=== PATIENT | female | born 1960 | race Caucasian/White ===

== ENCOUNTER 2025-01-26 23:50 | Emergency (ER) | payer OTHER, SELFPAY ==
[2025-01-26 23:50] VITALS: BP 156/83; PULSE 83; RESP 17; TEMP 36.2; O2SAT 100; BMI 22.1
--- NOTE | 2025-01-27 00:10 | EDS_ITS ---
HPI History of Present Illness Chief Complaint: Nausea/Vomiting Narrative Narrative: 54-year-old female presents with nausea, vomiting, and watery stool after GoLytely bowel prep. She relates history that at the end of November, approximately 2 months ago, she could not have her colonoscopy performed because of the prep was not fully effective. She rescheduled it for tomorrow morning. She and her who is a physician and states that she started the GoLytely prep last evening, and she was told that she should have 2 days of clear liquids only instead of 1 day. They state that earlier this evening she began having nausea and vomiting small amounts but a lot of loose stool. She feels fatigued, and mildly confused. This is similar to when she had hyponatremia in the past. Concern is that she is hyponatremic again from the bowel prep. She denies any recent fevers or chills, currently no abdominal pain. No other symptoms. No exacerbating or alleviating factors. PFSH PFSH Allergy/AdvReac Type Severity Reaction Status Date / Time No Known Allergies Allergy Verified 01/26/25 23:50 Social History Smoking Status: Never smoker ROS ROS ED ROS Narrative Review of systems positive for nausea, vomiting, and loose stool with bowel prep. No fevers or chills. No current abdominal pain. Positive for fatigue/lethargy and mild confusion. EXAM Physical Exam Narrative Exam Narrative: Afebrile. Vital signs noted. Nontoxic-appearing. Cardiovascular examination reveals a regular rate and rhythm. Lungs are clear to auscultation bilaterally. Abdomen is soft, nontender, without guarding or rebound. Positive bowel sounds. Neurological examination nonfocal nonlateralizing. No pedal edema. Awake, alert, oriented x 3. Const Vital Signs: 01/26/25 23:50 01/27/25 02:00 Temperature 97.2 F L Temperature Source Temporal Pulse Rate 83 88 Respiratory Rate 17 18 Blood Pressure 156/83 H 149/84 H Blood Pressure Mean 107 105 Pulse Ox 100 100 Oxygen Delivery Method Room Air Room Air MDM MDM MDM Narrative Medical decision making narrative: Concern is for intravascular volume depletion versus dehydration versus other electrolyte abnormality such as hyponatremia. Her states that they wish to avoid medications currently. She will be bolused normal saline I will check her CBC, lipase, and CMP. Currently I do not feel imaging is indicated. I have low concern for bowel obstruction. I reviewed her laboratory work and she has normal white count of 9.4 with hemoglobin 12.2, hematocrit 34.2, platelet count normal at 192. Her sodium is low at 115 with chloride low at 80. BUN 13 and creatinine 0.67. Lipase normal at 32 so I doubt pancreatitis. She was bolused 1 L, then I will run maintenance fluids at 200 mL/h. Patient and request transfer to [facility], as he states that given insurance reasons that [facility] sites are preferred. I initially discussed the patient with the hospitalist nurse practitioner, who states that they are cut off for hyponatremia is 118 and they feel that she needs to be admitted to the ICU given that she is symptomatic. There has been no seizure activity noted here. I will discuss the patient with their aerospace technician for a dmission to the ICU in transfer. I discussed patient with Dr. Frost, who would like all fluids stopped. He will recheck the sodium. He did state that he did not want 3% saline running. Disposition is transferred in guarded condition. History & Record Review Discussion w/independent historian: Patient and Family () Lab Data Attestation: I reviewed the patient's lab results. Labs: Laboratory Results - last 24 hr 01/27/25 00:04 WBC 9.4 RBC 4.33 Hgb 12.2 Hct 34.2 L MCV 79.0 L MCH 28.2 MCHC 35.7 RDW Std Deviation 33.5 L RDW Coeff of Jalen 11.7 Plt Count 192 MPV 9.3 Immature Gran % (Auto) 0.700 Neut % (Auto) 83.6 H Lymph % (Auto) 8.8 L Caroline % (Auto) 6.6 Eos % (Auto) 0.1 Baso % (Auto) 0.2 Absolute Neuts (auto) 7.8 H Absolute Lymphs (auto) 0.82 L Nucleated RBC % 0 Sodium 115 L* Potassium 3.6 Chloride 80 L Carbon Dioxide 22.4 Anion Gap 12 BUN 13 Creatinine 0.67 L Estim Creat Clear Calc 90.98 Est GFR (MDRD) Non-Af 99 BUN/Creatinine Ratio 19.3 Glucose 139 H Calcium 8.5 Total Bilirubin 1.34 H AST 31 ALT 19 Alkaline Phosphatase 50 Total Protein 6.6 Albumin 4.6 Globulin 2.0 L Albumin/Globulin Ratio 2.3 Lipase 32 Management Discussion w/another healthcare provider: Hotel Supplies Salesperson (Initially spoke with nurse practitioner hospitalist medicine, then with Dr. Frost with intensive care) Critical Care Time Critical Care Time: Yes Critical care time (excluding procedures): 30-74 minutes (32), Including time spent:, Discussing w/Patient &/or Family/Director Translational, Discussing w/Consultants, Arranging Admission or Transfer and Performing Direct Patient Care at Bedside Discharge Plan Triage Chief Complaint: Nausea/Vomiting ED Provider: Wayne Eaton Dx/Rx/DC Orders Clinical Impression: Hyponatremia, Dehydration, Nausea and vomiting Primary Care Provider: Kilo Bo Referrals: Kilo Bo MD [Primary Care Provider] - Print Language: Lithuanian Disposition Disposition: Acute Care Hospital Discharge Location: [facility]
[2025-01-27] MEDS: 0.9% Normal Saline (1000mL) 1,000 ML 1000 ML IV (00:17)
[2025-01-27 00:27] LABS: Absolute Lymphocyte Count 0.82 X10^3/uL (0.83-4.51); Absolute Neutrophil Count 7.8 X10^3/uL (2.0-7.7); Basophil# 0.02 X10^3/uL; Basophil% 0.2 % (0-1); Eosinophil# 0.01 X10^3/uL; Eosinophils% 0.1 % (0-5); Hematocrit 34.2 % (37-47); Hemoglobin 12.2 g/dL (12.0-15.0); Lymphocyte # 0.82 X10^3/ul (0.83-4.51); Lymphocyte % 8.8 % (19-41); Mean Corp Hgb Conc 35.7 g/dL (32-36); Mean Corpuscular Hgb 28.2 pg (27.0-32.0); Mean Platelet Vol. 9.3 fl (6.2-12.0); Monocyte# 0.62 X10^3/uL; Monocyte% 6.6 % (0-10); NRBC Flagged by Analyzer 0 % (0-5); Neutrophil # 7.83 X10^3/uL (2.7-7.7); Neutrophil % 83.6 % (47-70); Platelet Count 192 K/mm3 (150-450); RBC Distribution Width CV 11.7 % (11.6-14.6); RBC Distribution Width SD 33.5 fl (35.1-43.9); Red Blood Count 4.33 M/mm3 (4.2-5.4); White Blood Count 9.4 K/mm3 (4.4-11.0)
[2025-01-27 00:46] LABS: Lipase 32 U/L (13-75)
[2025-01-27 00:48] LABS: ALB/GLOB Ratio 2.3 RATIO (0.9-2.4); AST(SGOT) 31 U/L (<=31); Alanine Aminotransfer ALT/SGPT 19 U/L (<=34); Albumin, Serum 4.6 g/dL (3.4-4.8); Alkaline Phosphatase 50 U/L (35-104); Anion Gap 12 (5-15); BUN 13 mg/dL (4-19); BUN/Creat Ratio 19.3 RATIO (10-20); Calcium,Total 8.5 mg/dL (7.6-11.0); Carbon Dioxide 22.4 mmol/L (21.0-32.0); Chloride 80 mmol/L (98-108); Creatinine, Serum 0.67 mg/dL (0.70-1.20); EST Glomerular Filtration Rate 99 (>60); Estimated Creatinine Clearance 90.98 ml/min (50-250); Glucose 139 mg/dL (70-99); Potassium 3.6 mmol/L (3.3-5.1); Protein, Total 6.6 g/dL (5.9-8.4); Sodium Level 115 mmol/L (133-145); Total Bilirubin 1.34 mg/dL (0.00-1.30)
[2025-01-27 02:00] VITALS: BP 149/84; PULSE 88; RESP 18; O2SAT 100
[2025-01-27 03:38] VITALS: BP 156/88; PULSE 85; RESP 19; TEMP 36.2; O2SAT 99
[2025-01-27 03:53] LABS: Anion Gap 10 (5-15); BUN 10 mg/dL (4-19); BUN/Creat Ratio 19.4 RATIO (10-20); Chloride 83 mmol/L (98-108); Creatinine, Serum 0.53 mg/dL (0.70-1.20); EST Glomerular Filtration Rate 104 (>60); Estimated Creatinine Clearance 115.02 ml/min (50-250); Glucose 140 mg/dL (70-99); Potassium 3.7 mmol/L (3.3-5.1); Sodium Level 114 mmol/L (133-145)
== END 2025-01-27 03:40 | disposition short-term general hospital (02) ==
PROVIDERS: Emergency Provider Emergency Medicine; PCP Internal Medicine; Visit Provider Emergency Medicine
DX: E86.0 Dehydration (principal); E87.1 Hypo-osmolality and hyponatremia; R11.2 Nausea with vomiting, unspecified
CPT/HCPCS: 80048; 80053; 83690; 85025; 99283